=== PATIENT | female | born 1955 | race Caucasian/White ===

== ENCOUNTER 2016-05-20 19:48 | Emergency (ER) | payer OTHER ==
[~2016-05-20 19:48] MED LIST: ADVAIR 250-501 EACH INH; ALDACTONE25 MG PO; ASCORBIC ACID500 MG PO; ASPIRIN325 MG PO; BUMEX0.5 MG PO; CALCARB 600 W-1 EACH PO; CARAFATE1 GM PO; CIPRO250 MG PO; CLARITIN10 MG PO; COLACE100 MG PO; COMBIVENT RESPIM4 GM INH; COZAAR50 MG PO; CYMBALTA30 MG PO; CYMBALTA60 MG PO; CYPROHEPTADINE H4 MG PO; DOXYCYCLINE HY100 M2 PO; ESOMEPRAZOLE MA40 MG PO; FEOSOL325 MG PO; FLONASE 0.05% N16 GM; FOLIC ACID1 MG PO; HCTZ25 MG PO; HYDROCODON-ACE1 EAC6 PO; K-DUR20 MEQ PO; LASIX40 MG PO; LEVAQUIN750 MG PO; LIORESAL10 MG PO; MAGNESIUM OXID400 MG PO; METHYLPREDNISOL16 MG PO; METOLAZONE5 MG PO; MIRTAZAPINE15 MG PO; MIRTAZAPINE30 MG PO; NEURONTIN800 MG PO; NICODERM 14MG PA1 EA TD; NICODERM 21MG PA1 EA TD; NICODERM 7MG PAT1 EA TD; PAIN RELIEF650 MG PO; POTASSIUM CHLO20 ME1 PO; PROMETHAZINE HC25 M1 PO; SPIRIVA18 MCG INH; SYNTHROID25 MCG PO; SYNTHROID50 MCG PO; TENORMIN50 MG PO; VISTARIL25 MG PO; VITAMIN D1000 UNI1 PO; ZOCOR20 MG PO; ZOFRAN4 MG PO
== END 2016-05-21 02:44 | disposition left against medical advice (07) ==
LOC: ER 19:48
DX: Z53.21 Procedure and treatment not carried out due to patient leaving prior to being seen by health care provider (principal)
CPT/HCPCS: 99211